=== PATIENT | female | born 1960 | race Caucasian/White ===

== ENCOUNTER → 2017-10-31 | Outpatient (CLI) | payer OTHER ==
[~2017-10-31] MED LIST: ESTROVEN MAX400 MCG PO; HYDROCODONE-AP1 EAC6 PO; LOSARTAN POTAS100 MG PO; NORVASC5 MG PO; OMEPRAZOLE40 MG PO; PHENTERMINE H37.5 MG PO; PRILOSEC 10MG C10 M1 PO; VITAMIN D1000 UNI1 PO; WELLBUTRIN 100100 M1 NG
== END ==
LOC: RAD 11:25
DX: S83.242A Other tear of medial meniscus, current injury, left knee, initial encounter (principal); S83.281A Other tear of lateral meniscus, current injury, right knee, initial encounter; M17.12 Unilateral primary osteoarthritis, left knee; M71.22 Synovial cyst of popliteal space [Baker], left knee; X58.XXXA Exposure to other specified factors, initial encounter; Y93.89 Activity, other specified; Y92.89 Other specified places as the place of occurrence of the external cause; Y99.8 Other external cause status

== ENCOUNTER → 2019-06-08 | Outpatient (CLI) | payer OTHER | LOC: ULTRA 06-07 10:02 | DX: E04.9 Nontoxic goiter, unspecified (principal); E03.9 Hypothyroidism, unspecified ==

== ENCOUNTER 2019-09-17 10:11 | Emergency (ER) | payer OTHER ==
[~2019-09-17] VITALS: Ht 170.2 cm; Wt 72.6 kg
[2019-09-17] MEDS ORDERED: MEDROLDOSEPACK PO (11:45)
[2019-09-17 12:10] VITALS: BP 148/71
== END 2019-09-17 12:18 | disposition home or self-care (01) ==
LOC: ER 10:11
DX: M25.531 Pain in right wrist (principal); M19.90 Unspecified osteoarthritis, unspecified site; K21.9 Gastro-esophageal reflux disease without esophagitis; G47.30 Sleep apnea, unspecified; Z90.710 Acquired absence of both cervix and uterus; Z98.890 Other specified postprocedural states; Z90.49 Acquired absence of other specified parts of digestive tract

== ENCOUNTER 2019-11-07 09:46 | Emergency (ER) | payer OTHER ==
[~2019-11-07] VITALS: Ht 149.9 cm; Wt 94.8 kg
[~2019-11-07 09:46] MED LIST changes: +MEDROLDOSEPACK PO; -OMEPRAZOLE40 MG PO; -VITAMIN D1000 UNI1 PO
[2019-11-07] MEDS ORDERED: OMEPRAZOLE40 MG PO (10:22)
[2019-11-07] MEDS ORDERED: VITAMIN D32000 UNI2 PO (10:23)
[2019-11-07 11:16] LABS: ABSOLUTE NEUTROPHILS 15.3 thou/uL (1.4-8.2); BASOPHILS 0.4 % (0.0-2.0); EOSINOPHILS 0.2 % (0.0-3.0); LYMPHOCYTES 5.9 % (24.0-44.0); MCH 29.3 pg (26.0-34.0); MCHC 33.2 g/dL (28.0-37.0); MCV 88.3 fL (80.0-100.0); MONOCYTES 5.6 % (1.0-8.0); POLYS 87.9 % (36.0-66.0); RBC 4.76 mil/uL (4.20-5.00); RDW 15.1 % (10.5-14.5); WBC 17.4 thou/uL (4.0-11.0)
[2019-11-07 11:20] LABS: CALCIUM 9.6 mg/dL (8.5-10.1); CREATININE 0.8 mg/dL (0.6-1.0); POTASSIUM 4.1 mmol/L (3.5-5.1)
[2019-11-07 11:39] LABS: URINE BILIRUBIN NEGATIVE (Negative); URINE BLOOD NEGATIVE (Negative); URINE CLARITY CLEAR; URINE COLOR YELLOW; URINE GLUCOSE-RANDOM* NEGATIVE (Negative); URINE KETONES NEGATIVE (Negative); URINE LEUKOCYTES-REFLEX NEGATIVE (Negative); URINE NITRITE-REFLEX NEGATIVE (Negative); URINE PROTEIN (DIPSTICK) NEGATIVE (Negative); URINE UROBILINOGEN 0.2 E.U./dl (0.2-1.0)
[2019-11-07 12:11] LABS: PLATELET COUNT 252 thou/uL (150-400)
[2019-11-07 12:35] VITALS: BP 158/73
--- NOTE | 2019-11-08 08:48 | EKG ---
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 : 1960 Requested By: Timbo Chaparro Order Number: [id number] MD: Israel Sears Measurements Intervals [place] Rate: 106 P: 32 IA: 145 QRS: 18 QRSD: 106 T: 27 QT: 347 QTc: 461 Interpretive Statements Sinus tachycardia Nonspecific ST segment abnormality Compared to ECG 11/28/2017 12:35:18 Sinus tachycardia is now present Electronically Signed On 11-08-2019 8:47:07 CDT by Israel Sears [email or web address] <ELECTRONICALLY SIGNED> By: Israel Sears MD, FACC 11/08/19 [id number] Israel Sears MD, [facility] /EPI
== END 2019-11-07 12:36 | disposition home or self-care (01) ==
LOC: ER 09:46
PROVIDERS: Emergency Medicine
DX: R53.83 Other fatigue (principal); R42 Dizziness and giddiness; I10 Essential (primary) hypertension; E66.9 Obesity, unspecified; K21.9 Gastro-esophageal reflux disease without esophagitis; G47.30 Sleep apnea, unspecified; Z68.41 Body mass index [BMI] 40.0-44.9, adult; Z90.710 Acquired absence of both cervix and uterus; Z90.49 Acquired absence of other specified parts of digestive tract; Z98.890 Other specified postprocedural states

== ENCOUNTER 2020-05-17 13:34 | Emergency (ER) | payer OTHER ==
[~2020-05-17] VITALS: Ht 149.9 cm; Wt 93.9 kg
[~2020-05-17 13:34] MED LIST changes: +OMEPRAZOLE40 MG PO; +VITAMIN D32000 UNI2 PO
[2020-05-17 13:46] VITALS: BP 141/100
== END 2020-05-17 17:02 | disposition home or self-care (01) ==
LOC: ER 13:34
DX: J06.9 Acute upper respiratory infection, unspecified (principal); Z20.828 Contact with and (suspected) exposure to other viral communicable diseases; R43.8 Other disturbances of smell and taste; I10 Essential (primary) hypertension; E66.9 Obesity, unspecified; Z90.711 Acquired absence of uterus with remaining cervical stump; Z90.49 Acquired absence of other specified parts of digestive tract; Z98.890 Other specified postprocedural states; Z79.899 Other long term (current) drug therapy; Z68.41 Body mass index [BMI] 40.0-44.9, adult

== ENCOUNTER → 2021-02-10 | Outpatient (CLI) | payer OTHER | LOC: NUC 07:36 | PROVIDERS: ATTEND Family Medicine | DX: E04.1 Nontoxic single thyroid nodule (principal) ==